=== PATIENT | female | born 1975 ===

== ENCOUNTER 2019-06-05 12:39 | Emergency (ER) | payer SELFPAY ==
[~2019-06-05] VITALS: Ht 165.1 cm; Wt 68.2 kg
[2019-06-05 12:51] VITALS: BP 111/60
[2019-06-05] MEDS ORDERED: CEPH-572 PO (14:03)
[2019-06-05] MEDS ORDERED: FLUC150T PO (14:03)
== END 2019-06-05 14:20 | disposition home or self-care (01) ==
LOC: ER 12:40
DX: S41.131A Puncture wound without foreign body of right upper arm, initial encounter (principal); S40.811A Abrasion of right upper arm, initial encounter; L03.113 Cellulitis of right upper limb; Z88.0 Allergy status to penicillin; Z79.899 Other long term (current) drug therapy; W22.8XXA Striking against or struck by other objects, initial encounter; Y93.89 Activity, other specified; Y92.89 Other specified places as the place of occurrence of the external cause; Y99.0 Civilian activity done for income or pay
CPT/HCPCS: 99283